=== PATIENT | male | born 1955 | race Caucasian/White ===

== ENCOUNTER 2019-01-27 05:35 | Inpatient (IN) ==
--- NOTE | 2018-12-25 16:30 | PAT Medication Instructions ---
Medication Instructions Date of Service December 25, 2018 Take morning of surgery With a small sip of water, OTHERWISE NOTHING TO EAT OR DRINK AFTER MIDNIGHT: Insulin Dependent Diabetic Patients * Test your blood sugar the morning of surgery * If Blood Sugar is GREATER THAN 150, take HALF of your regular dose of: * If Blood Sugar is LESS THAN 150, DO NOT TAKE ANY: Other Notes If you have any questions please call us at [phone] or [phone] or [phone] or [phone]
--- NOTE | 2018-12-28 08:25 | PAT Medication Instructions ---
Medication Instructions Date of Service December 28, 2018 Home Medications B-complex with vitamin C [Super B Complex-Vitamin C] 1 tab PO QAM Shot For Lungs , Starts With "F" 1 dose UD albuterol sulfate 2 puff INHALATION Q4H PRN amiodarone 200 mg PO QAM apixaban [Eliquis] 5 mg PO BID aspirin [Aspir-81] 81 mg PO HS cetirizine 10 mg PO QAM coenzyme Q10 [CoQ-10] 200 mg PO QAM cyclobenzaprine 10 mg PO TID PRN diltiazem HCl [Cartia XT] 180 mg PO QAM fluticasone propion-salmeterol 1 puff INHALATION BID hydrochlorothiazide 25 mg PO QAM lisinopril 40 mg PO HS montelukast 10 mg PO HS [id number] [Multivitamin 50 Plus] 1 tab PO QAM omeprazole 40 mg PO DAILY oxycodone 10 mg PO Q6H PRN red yeast rice 600 mg PO BID triamcinolone acetonide [Nasacort] 1 spray INTRANASAL UD PRN ASK your prescriber and surgeon apixaban [Eliquis] 5 mg PO BID (in order for spinal anesthesia Eliquis/Apixaban needs to be stopped 72 hours/3 days before surgery. Please check if okay with doctor that prescribes this to you) Shot For Lungs , Starts With "F" 1 dose UD STOP taking 2 weeks before surgery (or as soon as possible if surgery is within 2 weeks) coenzyme Q10 [CoQ-10] 200 mg PO QAM red yeast rice 600 mg PO BID DO NOT take the morning of surgery B-complex with vitamin C [Super B Complex-Vitamin C] 1 tab PO QAM Shot For Lungs , Starts With "F" 1 dose UD cetirizine 10 mg PO QAM cyclobenzaprine 10 mg PO TID PRN hydrochlorothiazide 25 mg PO QAM [id number] [Multivitamin 50 Plus] 1 tab PO QAM Take morning of surgery With a small sip of water, OTHERWISE NOTHING TO EAT OR DRINK AFTER MIDNIGHT: albuterol sulfate 2 puff INHALATION Q4H PRN (use if needed; please bring with you to hospital day of surgery if possible) amiodarone 200 mg PO QAM diltiazem HCl [Cartia XT] 180 mg PO QAM fluticasone propion-salmeterol 1 puff INHALATION BID omeprazole 40 mg PO DAILY oxycodone 10 mg PO Q6H PRN (okay to take up to 4 hours prior to surgery if needed) triamcinolone acetonide [Nasacort] 1 spray INTRANASAL UD PRN Take evening before surgery albuterol sulfate 2 puff INHALATION Q4H PRN (if needed) aspirin [Aspir-81] 81 mg PO HS cyclobenzaprine 10 mg PO TID PRN (if needed) fluticasone propion-salmeterol 1 puff INHALATION BID lisinopril 40 mg PO HS montelukast 10 mg PO HS oxycodone 10 mg PO Q6H PRN (if needed) triamcinolone acetonide [Nasacort] 1 spray INTRANASAL UD PRN (if needed) Other Notes If you have any questions please call us at [phone] or [phone] or [phone] or [phone]
--- NOTE | 2018-12-28 15:26 | Anesthesiology Consultation ---
Date of Service December 28, 2018 Assessment & Plan (1) Encounter for pre-operative examination: - Awaiting review preop testing (labs, CXR). - Awaiting surgeon-ordered PCP preop evaluation "done already" per patient ([facility] Arellano). - Awaiting nuclear portion of stress test from [facility] (done 12/11/17)- subsequent cardiac cath done 12/23/17 (noting minimal CAD). - Cardiology: 12/21/18: Hx intentional weight loss (339# to 264#). "Acceptable risk to proceed with the above intended surgery." Advised to stop Eliquis 48 hours prior to surgery per cardiology office visit note 12/21/18-- patient was subsequently seen at PAT 12/28/18 and advised that in order for preferred SAB, Eliquis would need to be stopped 72 hours prior to surgery. Patient was advised to contact cardiology to see if this is okay from their perspective. He was advised that if not, GA would be the alternative anesthesia. Chart Review Chart Review: Patient seen in Pre Admission Testing Teaching & Discussion Pre-Anesthesia Teaching/Discussion Notes: Instructed NPO after midnight before surgery,except medications with 15 cc of water. Medication instructions provided according to the [facility] guidelines. History Surgery Operation Date: 01/27/19 11:40 Proposed Procedures p Left Total Knee Arthroplasty - Gigi Fuentes DO Height/Weight Height: 5 ft 9 in Weight: 122.2 kg Allergies Allergy/AdvReac Type Severity Reaction Status Date / Time ampicillin Allergy pruritus, Verified 12/28/18 16:29 rash tramadol Allergy SOB Verified 12/28/18 16:29 gabapentin AdvReac hallucinati Verified 12/28/18 16:29 ons Medications Home Medications Medication Instructions Recorded Confirmed Last Taken B-complex with vitamin C [Super B 1 tab PO QAM 12/22/18 12/22/18 Unknown Complex-Vitamin C] Shot For Lungs , Starts With "F" 1 dose UD 12/22/18 12/22/18 Unknown albuterol sulfate 2 puff INHALATION Q4H PRN 12/22/18 12/22/18 Unknown amiodarone 200 mg PO QAM 12/22/18 12/22/18 Unknown apixaban [Eliquis] 5 mg PO BID 12/22/18 12/22/18 Unknown aspirin [Aspir-81] 81 mg PO HS 12/22/18 12/22/18 Unknown cetirizine 10 mg PO QAM 12/22/18 12/22/18 Unknown coenzyme Q10 [CoQ-10] 200 mg PO QAM 12/22/18 12/22/18 Unknown cyclobenzaprine 10 mg PO TID PRN 12/22/18 12/22/18 Unknown diltiazem HCl [Cartia XT] 180 mg PO QAM 12/22/18 12/22/18 Unknown fluticasone propion-salmeterol 1 puff INHALATION BID 12/22/18 12/22/18 Unknown hydrochlorothiazide 25 mg PO QAM 12/22/18 12/22/18 Unknown lisinopril 40 mg PO HS 12/22/18 12/22/18 Unknown montelukast 10 mg PO HS 12/22/18 12/22/18 Unknown ptzcvkgckrvk-tnrgehmu-hogtbw 1 tab PO QAM 12/22/18 12/22/18 Unknown [Multivitamin 50 Plus] omeprazole 40 mg PO DAILY 12/22/18 12/22/18 Unknown oxycodone 10 mg PO Q6H PRN 12/22/18 12/22/18 Unknown red yeast rice 600 mg PO BID 12/22/18 12/22/18 Unknown triamcinolone acetonide [Nasacort] 1 spray INTRANASAL UD PRN 12/22/18 12/22/18 Unknown Past Medical History Medical History Acid reflux controlled Afib paroxysmal Back problem Balance problem related to back/knee problems CAD (coronary artery disease) minimal non-obstructive COPD (chronic obstructive pulmonary disease) + lung disease (patient unsure if COPD vs. asthma) History of hepatitis remote hx (does not remember what type) s/p dietary changes/states no medical therapy was indicated History of stroke right eye (ocular)- 1+ years ago/residual mild right sided peripheral vision deficit/"floaters" Numbness and tingling chronic (LUE/hand, right fingertips) Obesity Shoulder problem s/p right shoulder injection (11/2018) Sleep apnea CPAP Exercise / Class Metabolic Activity III < 4 Walking/Shop/Light housework (uses cane PRN) Past Family History Family History Other Family history of breast cancer in mother Family history of cancer Family history of diabetes mellitus Past Surgical History Surgical History History of back surgery History of cardiac cath 1 YR AGO, KITTANING= NO STENTS History of colonoscopy History of elbow surgery LEFT History of eye surgery LASER RIGHT History of shoulder surgery LEFT History of tonsillectomy and adenoidectomy Hx of foot surgery LEFT Past Anesthesia History No Hx of Anesthesia Complications and No Family Hx of Anesthesia Complications History of PONV No Hx of PONV and No Hx of Motion Sickness Social History Smoking Status: Former smoker tobacco type: cigarettes Do You Dip or Chew Tobacco: Yes (4-5 CANS OVER A MONTH/ADVISED NPO) Smoking End Date: Quit 15+ years ago Hx Alcohol Use: Yes (HX HEAVY ALCOHOL USE IN PAST) Alcohol type: hard liquor alcohol intake frequency: a few times a week Hx Substance Use: No (HX OF - NONE CURRENT OTHER THAN PRESCRIPTION) Review of Systems Patient denies chest pain, shortness of breath, cough, wheezing, palpitations. Physical Exam Vital Signs VITALS BP 107/66 P 70 TEMP 98.3 SP02 94%RA RESP 16 PHYSICAL Full neck and c-spine range of motion. Full TMJ range of motion. TMD 3.5 finger breaths Mallampati Score 1 Dentition: chipped side tooth, missing molar Lungs: clear throughout to auscultation Cardiac: regular rate and rhythm, no murmurs noted Spine: normal Carotid arteries: negative bruit Extremities: no edema Trimmed evans Testing Electrocardiogram Date: 12/21/18 NSR at 71bpm. LAD. Inferior infarct, age undetermined (done at cardiology preop evaluation appointment). Echocardiogram Date: 10/13/17 EF 55%. Technically difficult study due to body habitus. Stress Test Date: 12/11/17 Type: exercise Lexiscan stress test negative for ischemia. Baseline EKG with a. fib with controlled ventricular response. Cardiac Catheterization Date: 12/23/17 Minimal CAD. EF 60%. Normal wall motion.
--- NOTE | 2018-12-28 16:10 | XRay Report ---
XR chest Pre-admission PA/Lat CLINICAL HISTORY: pat preoperative evaluation COMPARISON STUDY: No previous studies for comparison. FINDINGS: The bones soft tissues and hemidiaphragms are normal. The cardiomediastinal silhouette is n ormal. The lungs are clear. The pulmonary vasculature is normal. IMPRESSION: Negative chest. The above report was generated using voice recognition software. It may contain grammatical, syntax or spelling errors. Electronically signed by: Alex Lozada M.D. 12/28/2018 4:09 PM
[2018-12-28 16:11] LABS: Basophils # (auto) 0.01 K/uL (0-0.2); Basophils % (auto) 0.1 %; Hematocrit (blood only) 43.1 % (42-52); Hemoglobin 14.3 g/dL (14.0-18.0); Immature Granulocytes # (auto) 0.04 K/uL (0.00-0.02); Immature Granulocytes % (auto) 0.4 %; Lymphocytes # (auto) 1.58 K/uL (1.2-3.4); Lymphocytes % (auto) 15.9 %; Mean Corpuscular Hemoglobin 28.1 pg (25-34); Mean Corpuscular Hgb Conc 33.2 g/dL (32-36); Mean Corpuscular Volume 84.8 fL (80-100); Mean Platelet Volume 9.6 fL (7.4-10.4); Monocytes # (auto) 0.76 K/uL (0.11-0.59); Monocytes % (auto) 7.6 %; Neutrophils # (auto) 7.55 K/uL (1.4-6.5); Platelet Count 320 K/uL (130-400); RDW Coefficient of Variation 15.2 % (11.5-14.5); RDW Standard Deviation 47.3 fL (36.4-46.3); Red Blood Count 5.08 M/uL (4.7-6.1); White Blood Count 9.94 K/uL (4.8-10.8)
[2018-12-28 16:13] LABS: Appearance Urine Clear (Clear); Bacteria Urine Automated Negative (Negative); Bilirubin Urine Negative (Negative); Blood Urine Negative (Negative); Color Urine Dark Yellow; Epithelial Cell Urine Auto >30 /lpf (0-5); Glucose Urine UA Negative (Negative); Ketones Urine Trace (Negative); Leukocyte Esterase Urine Negative (Negative); Nitrite Urine Negative (Negative); Protein Urine 1+ (Negative); RBC Urine Automated 0-4 /hpf (0-4); Specific Gravity Urine 1.025 (1.000-1.030); Urobilinogen Urine Negative (Negative)
[2018-12-28 16:20] LABS: Albumin Level 3.6 gm/dl (3.4-5.0); BUN Creatinine Ratio 11.6 (10-20); Creatinine Clr Calc Pharmacy 64.2 ml/min; Est GFR (African American) 54.8; Est GFR (Non-African American) 47.2; Potassium 3.8 mmol/L (3.5-5.1)
[2018-12-28 16:21] LABS: Partial Thromboplastin Ratio 0.9; Partial Thromboplastin Time 25.7 Seconds (21.0-31.0); Prothrombin Time 10.3 Seconds (9.0-12.0)
[2018-12-29 05:32] LABS: Estimated Average Glucose 111 mg/dl; Hemoglobin A1C 5.5 % (4.5-5.6)
--- NOTE | 2018-12-29 08:15 | History & Physical Report ---
Date of Service December 29, 2018 date of surgery: 01/27/19 Assessment & Plan (1) Primary osteoarthritis of left knee: Risks and benefits of procedure discussed in detail today, patient would like to proceed with a Left total knee replacement at [facility] as scheduled. will obtain medical clearance prior to surgery as well as obtain PATs at [facility]. Will place on ASA 81mg po bid x 1 month post op, f/u 2 weeks post op for routine post-operative care and x-ray, sooner if having any problems. will make arrangements for HHPT at the time of discharge. At this point in time, has failed conservative measures and would like to proceed with surgical intervention. History of Present Illness Chief Complaint: left knee pain Primary Care Provider: NO PCP Mr Lynch is a 63 year old male who is here for a follow up of left knee pain, presents for pre-op evaluation prior to a left total knee replacement at [facility]. He presents with pain and stiffness on the left side. He states that the symptoms have been chronic non-traumatic and his pain occurs constantly with intermittent worsening. Currently the patient states that the symptoms are moderate-severe and is described as aching, sharp, shooting and throbbing. The symptoms occur continuously. Patient ambulates daily with cane. He rates his current pain as 10/10. The symptoms are aggravated by ascending stairs, daily activities, descending stairs, first steps while awake, kneeling, movement, repetitive activities, sleeping in any position, squatting, standing, walking and weight bearing. In addition to left knee pain the patient is also experiencing decreased mobility, difficulty bending, difficulty going to sleep, instability, joint pain, limping, nighttime awakening, pain, stiffness, tenderness and weakness. Prior NSAIDs include Ibuprofen and Aleve. Prior pain medications include oxycodone. He has been treated with a corticosteroid injection on the left side. Allergies Allergy/AdvReac Type Severity Reaction Status Date / Time ampicillin Allergy pruritus, Verified 12/28/18 16:29 rash tramadol Allergy SOB Verified 12/28/18 16:29 gabapentin AdvReac hallucinati Verified 12/28/18 16:29 ons Home Medications Home Medications Medication Instructions Recorded Confirmed Type B-complex with vitamin C [Super B 1 tab PO QAM 12/22/18 12/22/18 History Complex-Vitamin C] Shot For Lungs , Starts With "F" 1 dose UD 12/22/18 12/22/18 History albuterol sulfate 2 puff INHALATION Q4H PRN 12/22/18 12/22/18 History amiodarone 200 mg PO QAM 12/22/18 12/22/18 History apixaban [Eliquis] 5 mg PO BID 12/22/18 12/22/18 History aspirin [Aspir-81] 81 mg PO HS 12/22/18 12/22/18 History cetirizine 10 mg PO QAM 12/22/18 12/22/18 History coenzyme Q10 [CoQ-10] 200 mg PO QAM 12/22/18 12/22/18 History cyclobenzaprine 10 mg PO TID PRN 12/22/18 12/22/18 History diltiazem HCl [Cartia XT] 180 mg PO QAM 12/22/18 12/22/18 History fluticasone propion-salmeterol 1 puff INHALATION BID 12/22/18 12/22/18 History hydrochlorothiazide 25 mg PO QAM 12/22/18 12/22/18 History lisinopril 40 mg PO HS 12/22/18 12/22/18 History montelukast 10 mg PO HS 12/22/18 12/22/18 History bhospxiooewg-vwferpzt-dflieo 1 tab PO QAM 12/22/18 12/22/18 History [Multivitamin 50 Plus] omeprazole 40 mg PO DAILY 12/22/18 12/22/18 History oxycodone 10 mg PO Q6H PRN 12/22/18 12/22/18 History red yeast rice 600 mg PO BID 12/22/18 12/22/18 History triamcinolone acetonide [Nasacort] 1 spray INTRANASAL UD PRN 12/22/18 12/22/18 History Past Med/Surg History Medical History Acid reflux controlled Afib paroxysmal Back problem Balance problem related to back/knee problems CAD (coronary artery disease) minimal non-obstructive COPD (chronic obstructive pulmonary disease) + lung disease (patient unsure if COPD vs. asthma) History of hepatitis remote hx (does not remember what type) s/p dietary changes/states no medical therapy was indicated History of stroke right eye (ocular)- 1+ years ago/residual mild right sided peripheral vision deficit/"floaters" Numbness and tingling chronic (LUE/hand, right fingertips) Obesity Shoulder problem s/p right shoulder injection (11/2018) Sleep apnea CPAP Surgical History History of back surgery History of cardiac cath 1 YR AGO, KITTANING= NO STENTS History of colonoscopy History of elbow surgery LEFT History of eye surgery LASER RIGHT History of shoulder surgery LEFT History of tonsillectomy and adenoidectomy Hx of foot surgery LEFT Family History Other Family history of breast cancer in mother Family history of cancer Family history of diabetes mellitus Social History Preferred Language: Estonian Communication Ability: Effective Personal Banking Representative Required: No Beliefs That Will Affect Care: None Current Living Situation: Alone Other Information That Helps Us Care for You: Yes (LOSES BALANCE DUE TO BACK AND KNEE ISSUES) Feels Safe at Home: Yes Smoking Status: Former smoker Tobacco Type: cigarettes ; Do You Dip or Chew Tobacco: Yes (4-5 CANS OVER A MONTH/ADVISED NPO) ; Smoking End Date: Quit 15+ years ago ; Tobacco Cessation Education Requested by Patient: No Hx Alcohol Use: Yes (HX HEAVY ALCOHOL USE IN PAST) Alcohol type: hard liquor Hx Substance Use: No (HX OF - NONE CURRENT OTHER THAN PRESCRIPTION) Review of Systems Review of Systems: All systems reviewed & are unremarkable except as noted in HPI & below Constitutional: no fever, no chills and no sweats Respiratory: no cough and no dyspnea Cardiovascular: no chest pain, no dyspnea and no orthopnea Gastrointestinal: no abdominal pain, no nausea and no vomiting Musculoskeletal: as per Subjective / HPI Physical Exam Physical Exam: Ht: 5ft 9in Wt: 122kg BP: 132/68 Pulse: 82 Constitutional: WD/WN, vitals as above no acute distress Respiratory: normal respiratory effort, lungs clear to auscultation no respiratory distress, no labored breathing and does not use accessory muscles Cardiovascular: RRR, no murmur, no edema Gastrointestinal (Abdomen): normal bowel sounds, soft, nontender, no hepatosplenomegaly Musculoskeletal: Knee: + knee abnormal to inspection (Left knee: ), + effusion (+1 effusion), + surgical incision (well healed portals), + limited ROM of knee (ROM 0/3/110), + knee ROM with crepitation, + joint line tenderness (medial joint line) and + Lidia's sign positive; no deformity, no skin erythema, no ecchymosis, no valgus laxity, no varus laxity, anterior drawer test negative, Yanira's sign negative and pivot shift test negative Results & Data Laboratory Results Laboratory Results WBC 9.94 K/uL (4.8-10.8) 12/28/18 15:47 RBC 5.08 M/uL (4.7-6.1) 12/28/18 15:47 Hgb 14.3 g/dL (14.0-18.0) 12/28/18 15:47 Hct 43.1 % (42-52) 12/28/18 15:47 MCV 84.8 fL (80-100) 12/28/18 15:47 MCH 28.1 pg (25-34) 12/28/18 15:47 MCHC 33.2 g/dL (32-36) 12/28/18 15:47 RDW Std Deviation 47.3 fL (36.4-46.3) H 12/28/18 15:47 RDW Coeff of Niya 15.2 % (11.5-14.5) H 12/28/18 15:47 Plt Count 320 K/uL (130-400) 12/28/18 15:47 MPV 9.6 fL (7.4-10.4) 12/28/18 15:47 Immature Gran % (Auto) 0.4 % 12/28/18 15:47 Neut % (Auto) 76.0 % 12/28/18 15:47 Lymph % (Auto) 15.9 % 12/28/18 15:47 [place] % (Auto) 7.6 % 12/28/18 15:47 Eos % (Auto) 0.0 % 12/28/18 15:47 Baso % (Auto) 0.1 % 12/28/18 15:47 Immature Gran # (Auto) 0.04 K/uL (0.00-0.02) H 12/28/18 15:47 Neut # (Auto) 7.55 K/uL (1.4-6.5) H 12/28/18 15:47 Lymph # (Auto) 1.58 K/uL (1.2-3.4) 12/28/18 15:47 [place] # (Auto) 0.76 K/uL (0.11-0.59) H 12/28/18 15:47 Eos # (Auto) 0.00 K/uL (0-0.5) 12/28/18 15:47 Baso # (Auto) 0.01 K/uL (0-0.2) 12/28/18 15:47 PT 10.3 Seconds (9.0-12.0) 12/28/18 15:47 INR 1.0 (0.9-1.1) 12/28/18 15:47 APTT 25.7 Seconds (21.0-31.0) 12/28/18 15:47 PTT Ratio 0.9 12/28/18 15:47 Sodium 142 mmol/L (136-145) 12/28/18 15:47 Potassium 3.8 mmol/L (3.5-5.1) 12/28/18 15:47 Chloride 107 mmol/L (98-107) 12/28/18 15:47 Carbon Dioxide 29 mmol/L (21-32) 12/28/18 15:47 Anion Gap 6.0 (3-11) 12/28/18 15:47 BUN 18 mg/dl (7-18) 12/28/18 15:47 Creatinine 1.56 mg/dl (0.6-1.4) H 12/28/18 15:47 Est Cr Clr Drug Dosing 64.2 ml/min 12/28/18 15:47 Est GFR ( Amer) 54.8 12/28/18 15:47 Est GFR (Non-Af Amer) 47.2 12/28/18 15:47 BUN/Creatinine Ratio 11.6 (10-20) 12/28/18 15:47 Glucose 106 mg/dl (70-99) H 12/28/18 15:47 Estimat Average Glucose 111 mg/dl 12/28/18 15:47 Hemoglobin A1c 5.5 % (4.5-5.6) 12/28/18 15:47 Calcium 9.0 mg/dl (8.5-10.1) 12/28/18 15:47 Albumin 3.6 gm/dl (3.4-5.0) 12/28/18 15:47 Urine Color Dark Yellow 12/28/18 Unknown Urine Appearance Clear (Clear) 12/28/18 Unknown Urine pH 5.0 (4.5-7.5) 12/28/18 Unknown Ur Specific [place] 1.025 (1.000-1.030) 12/28/18 Unknown Urine Protein 1+ (Negative) H 12/28/18 Unknown Urine Glucose (UA) Negative (Negative) 12/28/18 Unknown Urine Ketones Trace (Negative) H 12/28/18 Unknown Urine Blood Negative (Negative) 12/28/18 Unknown Urine Nitrite Negative (Negative) 12/28/18 Unknown Urine Bilirubin Negative (Negative) 12/28/18 Unknown Urine Urobilinogen Negative (Negative) 12/28/18 Unknown Ur Leukocyte Esterase Negative (Negative) 12/28/18 Unknown Urine WBC (Auto) 1-5 /hpf (0-5) 12/28/18 Unknown Urine RBC (Auto) 0-4 /hpf (0-4) 12/28/18 Unknown U Hyaline Cast (Auto) 1-5 /lpf (0-5) 12/28/18 Unknown U Epithel Cells (Auto) >30 /lpf (0-5) H 12/28/18 Unknown Urine Bacteria (Auto) Negative (Negative) 12/28/18 Unknown Urine Yeast Not Reportable 12/28/18 Unknown Blood Type O Positive 12/28/18 15:47 Antibody Screen NEGATIVE 12/28/18 15:47 Diagnostic Findings Left Knee X-ray from 06/23/18 showing advanced degenerative changes to the left knee, greatest medial compartments and patellofemoral joint, showing joint space narrowing, osteophyte formation and subchondral sclerosis. no acute bony pathology noted.
[2019-01-27] MEDS ORDERED: METOCLOPRAMIDE HCL 10 MG TABLET PO SCH (06:00)
[2019-01-27] MEDS ORDERED: LR 500ML BOLUS, THEN 15ML/HR IV SCH (06:00)
[2019-01-27] MEDS ORDERED: TRANEXAMIC ACID 1,000 MG **IV Pre-op IV SCH (06:00)
[2019-01-27] MEDS ORDERED: ACETAMINOPHEN 500 MG TAB PO SCH (06:00)
[2019-01-27] MEDS ORDERED: CEFAZOLIN 3000MG 72.5 ML IV SCH (06:00)
[2019-01-27] MEDS ORDERED: GABAPENTIN 600 MG DOSE PO SCH (06:00)
[2019-01-27] MEDS ORDERED: dexAMETHasone 4 MG TAB PO SCH (06:00)
[2019-01-27] MEDS ORDERED: FAMOTIDINE 20 MG TAB PO SCH (06:00)
[2019-01-27] MEDS ORDERED: CeleBREX 200 MG CAP PO SCH (06:00)
[2019-01-27] MEDS ORDERED: TRANEXAMIC ACID 1,000 MG **IV Intra-op IV SCH (06:30)
[2019-01-27] MEDS ORDERED: EPINEPHrine INJ 1 MG/ML AMP ONE (06:31)
[2019-01-27] MEDS ORDERED: BUPIVACAINE 0.5 % 5 MG/1 ML PF 10ML VIAL ONE (06:31)
[2019-01-27] MEDS ORDERED: ROPIVACAINE 0.5% 5 MG/ML 30 ML VIAL ONE (06:31)
[2019-01-27] MEDS ORDERED: PROPOFOL IV EMULSION 10 MG/ML 20 ML VIAL IV ONE ×2 (06:54→09:05)
[2019-01-27] MEDS ORDERED: LIDOCAINE HCL 2% 2 ML VIAL/AMP(20MG/ML) INFIL ONE (06:54)
[2019-01-27] MEDS ORDERED: ONDANSETRON INJ 2 MG/ML 2 ML VIAL ONE (06:54)
[2019-01-27] MEDS ORDERED: MIDAZOLAM HCL 1 MG/ML 2ML VIAL ONE (06:54)
[2019-01-27] MEDS ORDERED: fentaNYL citrate 100 MCG/2 ML VIAL ONE (06:55)
--- NOTE | 2019-01-27 07:06 | History & Physical Bridge Note ---
Date of Service January 27, 2019 History & Physical Bridge Note I have examined the patient, reviewed the History & Physical and in the interval since the performance of the History & Physical I have noted the following changes of clinical significance: no changes noted
[2019-01-27] MEDS ORDERED: BACITRACIN INJ 50,000 UNIT VIAL ONE (07:37)
[2019-01-27] MEDS ORDERED: LABETALOL HCL IV 5 MG/ML 20ML IV PRN (07:42)
[2019-01-27] MEDS ORDERED: MEPERIDINE HCL 25 MG/ML CARP IV PRN (07:42)
[2019-01-27] MEDS ORDERED: ATROPINE SULFATE 0.1 MG/ML 10ML SYR IV PRN (07:42)
[2019-01-27] MEDS ORDERED: PHENYLEPHRINE 100MCG/ML 5ML SYR IV PRN (07:42)
[2019-01-27] MEDS ORDERED: ePHEDrine sulfate 50 MG/ML AMP IV PRN (07:42)
[2019-01-27] MEDS ORDERED: fentaNYL citrate 100 MCG/2 ML VIAL IV PRN (07:42)
[2019-01-27] MEDS ORDERED: ONDANSETRON INJ 2 MG/ML 2 ML VIAL IV PRN ×2 (07:42→11:56)
[2019-01-27] MEDS ORDERED: ROPIVACAINE 0.5% HCL/PF 150 MG, BUPIVACAINE 0.5% MPF 30 ML, EPINEPHrine 30MG/30ML (OR U... INFIL SCH (09:00)
--- NOTE | 2019-01-27 09:41 | Operative Report ---
Post Operative Report Pre & Post Diagnosis Operation Date: 01/27/19 08:20 Pre-Op Diagnosis: Unilateral Primary Osteoarthritis, Left Knee Post-Op Diagnosis: Unilateral Primary Osteoarthritis, Left Knee I identified the patient and participated in the time-out.: Yes Procedure Operation Date: 01/27/19 08:20 Actual Procedures p Left Total Knee Arthroplasty(Left) utilized [facility] [facility] patient matched total knee arthroplasty size 7 femur 6 tibia 10 polyethylene 32 oval patella- Gigi Fuentes DO Surgeon Gigi Fuentes DO [employer] OSMEL Roberts Estimated Blood Loss 5 Findings Consistent with Post-Op Diagnosis Patient presents with severe end-stage tricompartmental degenerative joint disease left knee is been unresponsive conservative management the above intraoperative findings are noted subchondral cystic changes marginal osteophytes bone to bone eburnated bone varus alignment moderate to large effusion with severe ligamentous laxity Specimens Bone and cartilage Drains Medium Hemovac Complications none Disposition Accompanied Patient To Recovery: No Disposition: Recovery Room Indications Patient is a 63-year-old white male being seen by request of ongoing pain to the left knee nonresponsive conservative management above intraoperative findings no time surgery patient failed times its injections Visco supplementation corticost eroid injections relative rest activity modification bracing and physical therapy patient presents the above intraoperative findings were noted. Description of Procedure After proper identification of the patientAfter proper prepping and draping of the left lower extremity anterior midline incision was made over the region of the extensor extensor mechanism after meticulous hemostasis was obtained and maintained in subcutaneous tissues a medial parapatellar incision was made The patella was subluxed lateralward the medial lateral gutter were cleaned from any hypertrophic synovitis and scar tissue of the distal femoral block was placed and the distal femoral osteotomy cut was made subsequently the chamfers anterior and posterior osteotomy cuts were made utilizing the 4-in-1 block the tibia was subsequently subluxed anteriorward medial and ateral meniscal remnants were excised in their entirety remnants of the anterior and posterior cruciate ligaments were excised in their entirety excellent exposure of the proximal tibia was obtained the tibial osteotomy guide was placed on the proximal tibial osteotomy cut was made once again the knee was irrigated with copious amounts of sterile saline solution the patella was subsequently everted lateralward thickened scar tissue around the patella was removed the patella was subse quently cut utilizing a freehand technique and was drilled prepared for final preparation and placement of patella socially flexion-extension gaps were checked and the equal and symmetric trials were placed to the appropriate femoral and tibial trials with poly-spacer being placed for equal flexion and extension gaps and full range of motion including extension to 0 and flexion to 140 the trial components after having been taken to recovery range of motion was subsequently removed meticulous hemostasis was obtained and maintained subsequently a knee block injection of joint cocktail including ropivacaine 0.5% 150 mg. Bupivacaine 0.5% epinephrine 1-200,030 mL's toradol 30 mg dexamethasone 4 mg ketamine 10 mg clonidine 100 micrograms normal saline solution 30 mg was infiltrated into the soft tissues of the posterior knee medial lateral gutters and periosteal synovium special attention was paid to protect neurovascular structures at all times subsequently trial components having been removed the knee was irrigated with sterile saline solution. debris was removed the proximal tibia was subsequently prepared and was made ready for the placement of the tibial component tibial component was also cemented and tamped into position the femoral component was subsequently placed and cemented in the position the patellar component was subsequently cemented in position because hemostasis once again obtained and maintained wound having been thoroughly irrigated with debridement and debridement lavage was performed as well as a medial parapatellar incision closed with #1 Vicryl in interrupted fashion subcutaneous was closed with #2 Vicryl skin was closed with skin clips. PA-C was necessary for prepping and drapping as well as wound closure of deep fascia Sub cutaneous tissue and skin and was necessary for the case. A sterile compressive dressing was placed patient was taken to recovery in stable condition of report dictated by Alfredo I attest to the content of the Intraoperative Record and any orders documented therein. Any exceptions are noted below. I attest to the content of the Intraoperative Record and any orders documented therein. Any exceptions are noted below.
--- NOTE | 2019-01-27 11:05 | XRay Report ---
LEFT KNEE 2 VIEWS History: Left total knee arthroplasty. Degenerative arthritis. Postop. FINDINGS: The patient is status post a left total knee arthroplasty. The hardware is intact. No fract ure or dislocation. Surgical drains are in place. IMPRESSION: Left total knee arthroplasty. No evidence for hardware complication. Electronically signed by: Car Snowden M.D. 01/27/2019 11:03 AM
--- NOTE | 2019-01-27 11:29 | Anesthesiology Progress Note ---
Date of Service January 27, 2019 Anesthesia Post Procedure Vital Signs Vital Signs: Temp Pulse Pulse Resp BP BP Pulse Ox 01/27/19 11:25 36.4 C L 57 L 12 105/73 96 01/27/19 11:15 59 L 14 127/62 97 01/27/19 11:05 51 L 12 126/62 98 01/27/19 10:55 59 L 21 133/62 96 01/27/19 10:45 59 L 16 131/61 96 01/27/19 10:35 57 L 12 128/58 L 95 01/27/19 10:25 36.3 C L 65 13 117/49 L 95 01/27/19 06:27 36.7 C 58 L 20 170/79 H 95 Pain Intensity Bilateral Back: Pain Intensity: 1 Transfer of Care Handoff Completed per policy Notes Mental Status: alert / awake / arousable Patient Amnestic to Procedure: Yes Nausea / Vomiting: adequately controlled Pain: adequately controlled Airway Patency, RR, SpO2: stable & adequate BP & HR: stable & adequate Hydration State: stable & adequate Neuraxial Anesthesia: was administered and sensory block is resolving Anesthetic Complications: no major complications apparent and Pt Satisfied with anesthetic care
[2019-01-27] MEDS ORDERED: METOCLOPRAMIDE HCL INJ 5 MG/ML 2 ML VIAL IV PRN (11:56)
[2019-01-27] MEDS ORDERED: MAGNESIUM HYDROXIDE SUSP 30 ML UDC PO PRN (11:56)
[2019-01-27] MEDS ORDERED: bisacodyL 10 MG SUPP PR PRN (11:56)
[2019-01-27] MEDS ORDERED: TRIAMCINOLONE ACET NASAL SPRAY 10.8ML BTL NAE PRN (11:56)
[2019-01-27] MEDS ORDERED: SODIUM CHLORIDE 0.9% 1000ML 1,000 ML IV SCH (11:56)
[2019-01-27] MEDS ORDERED: ALBUTEROL HFA 8 GM INHALER INH PRN (11:56)
[2019-01-27] MEDS ORDERED: NALOXONE HCL 0.4 MG/1 ML VIAL/CARP IV PRN (11:56)
[2019-01-27] MEDS: ACETAMINOPHEN 500 MG TAB PO SCH ×3 (13:37→21:20)
[2019-01-27] MEDS: OXYCODONE HCL IR 5 MG TAB (IMMEDIATE RELEASE) PO PRN ×3 (15:57→23:49)
[2019-01-27] MEDS: CLINDAMYCIN 600 MG in DEXTROSE 5% 50 ML IV SCH ×2 (15:58→23:44)
[2019-01-27] MEDS: DOCUSATE SODIUM 100 MG CAP PO SCH (20:00)
[2019-01-27] MEDS: ASPIRIN 81 MG ECTAB PO SCH (20:00)
[2019-01-27] MEDS: MONTELUKAST SODIUM 10 MG TABLET PO SCH (20:00)
[2019-01-27] MEDS: SENNA 8.6 MG TAB PO SCH (20:00)
[2019-01-27] MEDS ORDERED: FLUTICASONE PROPION SALMETEROL INH SCH (21:00)
[2019-01-28] MEDS: OXYCODONE HCL IR 5 MG TAB (IMMEDIATE RELEASE) PO PRN ×5 (05:18→23:45)
[2019-01-28] MEDS: ACETAMINOPHEN 500 MG TAB PO SCH ×3 (05:52→21:18)
[2019-01-28 06:13] LABS: Hematocrit (blood only) 36.4 % (42-52); Mean Corpuscular Hemoglobin 28.3 pg (25-34); Mean Corpuscular Volume 85.8 fL (80-100); Mean Platelet Volume 9.4 fL (7.4-10.4); Platelet Count 308 K/uL (130-400); RDW Coefficient of Variation 15.2 % (11.5-14.5); RDW Standard Deviation 47.8 fL (36.4-46.3); Red Blood Count 4.24 M/uL (4.7-6.1)
--- NOTE | 2019-01-28 06:42 | Orthopedic Progress Note ---
Date of Service January 28, 2019 Assessment & Plan (1) History of total left knee replacement: POD #1 s/p Left TKA pt/ot dvt proph with LEWIS/SCD/resume Adriana today plan for d/c home with OPPT, he will be staying with his sister in [place] during his recovery Subjective POD #1 s/p Left TKA Review of Systems Constitutional: no fever, no chills and no sweats Respiratory: no cough and no dyspnea Cardiovascular: no chest pain and no dyspnea Gastrointestinal: no abdominal pain, no nausea and no vomiting Physical Exam Physical Exam: Vital Signs Temp 37.1 C 01/28/19 03:00 Pulse 57 L 01/28/19 03:00 Resp 16 01/28/19 03:00 BP 126/68 01/28/19 03:00 Pulse Ox 98 01/28/19 03:00 Intake & Output 01/27/19 01/28/19 01/28/19 18:59 06:59 18:59 Intake Total 2296.5 / 4810.5 2514 / 4810.5 Output Total 440 / 1290 850 / 1290 Balance 1856.5 / 3520.5 1664 / 3520.5 Weight 127 kg Intake: IV 946.5 / 2000.5 1054 / 2000.5 Ancef 3000MG 7 2.5 ml @ 130 mls/ 72.5 / 72.5 hr IV PREOP SC H Rx#:[id number] Cleocin 600 mg In D5w 50 ml @ 54 / 108 54 / 108 100 mls/hr IV Q8H MANNY Rx#: [id number] Lr 1,000 ml @ 15 mls/hr IV . 600 / 600 Q24H MANNY Rx#:[id number] Nss 1000ML 1,0 00 ml @ 100 mls/ 1000 / 1000 hr IV .Q10H SC H Rx#:[id number] Cyklokapron 1, 000 mg In Sodium 220 / 220 Chloride 100 m l @ 660 mls/hr IV 0630 MANNY Rx#:[id number] IV Perioperative 800 / 800 Oral 550 / 2010 1460 / 2010 Output: Urine 350 / 600 250 / 600 Estimated Blood Loss 10 / 10 Drain Output 80 / 680 600 / 680 Left Knee 80 / 680 600 / 680 Constitutional: WD/WN, vitals as above no acute distress Musculoskeletal: Left Leg: NVDI, calf SNT, negative joby sign. DP palpable, able to wiggle toes/ankle movement without difficulty. dressing clean dry and intact. Results & Data Vital Signs (Past 12 Hours) Vital Signs Temp Pulse Resp BP Pulse Ox 01/28/19 03:00 37.1 C 57 L 16 126/68 98 01/27/19 23:07 36.9 C 59 L 16 128/64 96 01/27/19 19:42 36.9 C 62 18 151/70 H 96 Laboratory Results Laboratory Results WBC 20.30 K/uL (4.8-10.8) H 01/28/19 06:01 RBC 4.24 M/uL (4.7-6.1) L 01/28/19 06:01 Hgb 12.0 g/dL (14.0-18.0) L 01/28/19 06:01 Hct 36.4 % (42-52) L 01/28/19 06:01 MCV 85.8 fL (80-100) 01/28/19 06:01 MCH 28.3 pg (25-34) 01/28/19 06:01 MCHC 33.0 g/dL (32-36) 01/28/19 06:01 RDW Std Deviation 47.8 fL (36.4-46.3) H 01/28/19 06:01 RDW Coeff of Niya 15.2 % (11.5-14.5) H 01/28/19 06:01 Plt Count 308 K/uL (130-400) 01/28/19 06:01 MPV 9.4 fL (7.4-10.4) 01/28/19 06:01 Immature Gran % (Auto) 0.4 % 12/28/18 15:47 Neut % (Auto) 76.0 % 12/28/18 15:47 Lymph % (Auto) 15.9 % 12/28/18 15:47 [place] % (Auto) 7.6 % 12/28/18 15:47 Eos % (Auto) 0.0 % 12/28/18 15:47 Baso % (Auto) 0.1 % 12/28/18 15:47 Immature Gran # (Auto) 0.04 K/uL (0.00-0.02) H 12/28/18 15:47 Neut # (Auto) 7.55 K/uL (1.4-6.5) H 12/28/18 15:47 Lymph # (Auto) 1.58 K/uL (1.2-3.4) 12/28/18 15:47 [place] # (Auto) 0.76 K/uL (0.11-0.59) H 12/28/18 15:47 Eos # (Auto) 0.00 K/uL (0-0.5) 12/28/18 15:47 Baso # (Auto) 0.01 K/uL (0-0.2) 12/28/18 15:47 PT 10.3 Seconds (9.0-12.0) 12/28/18 15:47 INR 1.0 (0.9-1.1) 12/28/18 15:47 APTT 25.7 Seconds (21.0-31.0) 12/28/18 15:47 PTT Ratio 0.9 12/28/18 15:47 Sodium 137 mmol/L (136-145) 01/28/19 06:01 Potassium 3.9 mmol/L (3.5-5.1) 01/28/19 06:01 Chloride 105 mmol/L (98-107) 01/28/19 06:01 Carbon Dioxide 29 mmol/L (21-32) 01/28/19 06:01 Anion Gap 3.0 (3-11) 01/28/19 06:01 BUN 25 mg/dl (7-18) H 01/28/19 06:01 Creatinine 1.49 mg/dl (0.6-1.4) H 01/28/19 06:01 Est Cr Clr Drug Dosing 68.6 ml/min 01/28/19 06:01 Est GFR ( Amer) 57.9 01/28/19 06:01 Est GFR (Non-Af Amer) 49.9 01/28/19 06:01 BUN/Creatinine Ratio 16.6 (10-20) 01/28/19 06:01 Glucose 133 mg/dl (70-99) H 01/28/19 06:01 POC Glucose 89 (70-99) 01/27/19 06:27 Estimat Average Glucose 111 mg/dl 12/28/18 15:47 Hemoglobin A1c 5.5 % (4.5-5.6) 12/28/18 15:47 Calcium 8.5 mg/dl (8.5-10.1) 01/28/19 06:01 Albumin 3.6 gm/dl (3.4-5.0) 12/28/18 15:47 Urine Color Dark Yellow 12/28/18 Unknown Urine Appearance Clear (Clear) 12/28/18 Unknown Urine pH 5.0 (4.5-7.5) 12/28/18 Unknown Ur Specific [place] 1.025 (1.000-1.030) 12/28/18 Unknown Urine Protein 1+ (Negative) H 12/28/18 Unknown Urine Glucose (UA) Negative (Negative) 12/28/18 Unknown Urine Ketones Trace (Negative) H 12/28/18 Unknown Urine Blood Negative (Negative) 12/28/18 Unknown Urine Nitrite Negative (Negative) 12/28/18 Unknown Urine Bilirubin Negative (Negative) 12/28/18 Unknown Urine Urobilinogen Negative (Negative) 12/28/18 Unknown Ur Leukocyte Esterase Negative (Negative) 12/28/18 Unknown Urine WBC (Auto) 1-5 /hpf (0-5) 12/28/18 Unknown Urine RBC (Auto) 0-4 /hpf (0-4) 12/28/18 Unknown U Hyaline Cast (Auto) 1-5 /lpf (0-5) 12/28/18 Unknown U Epithel Cells (Auto) >30 /lpf (0-5) H 12/28/18 Unknown Urine Bacteria (Auto) Negative (Negative) 12/28/18 Unknown Urine Yeast Not Reportable 12/28/18 Unknown Blood Type O Positive 12/28/18 15:47 Antibody Screen NEGATIVE 12/28/18 15:47 Diagnostic Findings LEFT KNEE 2 VIEWS History: Left total knee arthroplasty. Degenerative arthritis. Postop. FINDINGS: The patient is status post a left total knee arthroplasty. The hardware is intact. No fracture or dislocation. Surgical drains are in place. IMPRESSION: Left total knee arthroplasty. No evidence for hardware complication.
[2019-01-28 06:44] LABS: BUN Creatinine Ratio 16.6 (10-20); Calcium 8.5 mg/dl (8.5-10.1); Creatinine Clr Calc Pharmacy 68.6 ml/min; Est GFR (African American) 57.9; Est GFR (Non-African American) 49.9; Potassium 3.9 mmol/L (3.5-5.1)
[2019-01-28] MEDS: AMIODARONE 200 MG TAB PO SCH (07:47)
[2019-01-28] MEDS: VITAMIN B COMPLEX TAB PO SCH (07:48)
[2019-01-28] MEDS: APIXABAN 5 MG TABLET PO SCH ×2 (07:48→20:29)
[2019-01-28] MEDS: CETIRIZINE HCL 10 MG TABLET PO SCH ×2 (07:48→07:49)
[2019-01-28] MEDS: DOCUSATE SODIUM 100 MG CAP PO SCH ×2 (07:48→20:29)
[2019-01-28] MEDS: dilTIAZem HCL 180 MG CAPCR PO SCH (07:48)
[2019-01-28] MEDS: MULTIVITAMIN TAB PO SCH (07:48)
[2019-01-28] MEDS: CYCLOBENZAPRINE HCL 10 MG TAB PO PRN (08:50)
[2019-01-28] MEDS: HYDROmorphone INJ 1 MG/ML SYRINGE IV PRN ×2 (10:53→18:36)
--- NOTE | 2019-01-28 14:42 | Anesthesiology Progress Note ---
Date of Service January 28, 2019 Anesthesia Post Procedure Vital Signs Vital Signs: Temp Pulse Resp BP Pulse Ox 01/28/19 08:04 37.0 C 52 L 16 143/75 H 96 01/28/19 03:00 37.1 C 57 L 16 126/68 98 01/27/19 23:07 36.9 C 59 L 16 128/64 96 01/27/19 19:42 36.9 C 62 18 151/70 H 96 01/27/19 15:54 36.6 C 55 L 18 144/80 H 96 Pain Intensity Bilateral Back: Pain Intensity: 4 Notes Mental Status: alert / awake / arousable and participated in evaluation Patient Amnestic to Procedure: Yes Nausea / Vomiting: adequately controlled Pain: adequately controlled Airway Patency, RR, SpO2: stable & adequate BP & HR: stable & adequate Hydration State: stable & adequate Neuraxial Anesthesia: was administered and sensory block resolved Anesthetic Complications: no major complications apparent and Pt Satisfied with anesthetic care
[2019-01-28] MEDS: MONTELUKAST SODIUM 10 MG TABLET PO SCH (20:29)
[2019-01-28] MEDS: ASPIRIN 81 MG ECTAB PO SCH (20:29)
[2019-01-28] MEDS: SENNA 8.6 MG TAB PO SCH (20:29)
[2019-01-29] MEDS: OXYCODONE HCL IR 5 MG TAB (IMMEDIATE RELEASE) PO PRN ×3 (03:59→11:50)
[2019-01-29] MEDS: ACETAMINOPHEN 500 MG TAB PO SCH (05:15)
--- NOTE | 2019-01-29 07:19 | Orthopedic Progress Note ---
Date of Service January 29, 2019 Assessment & Plan (1) History of total left knee replacement: POD #2 s/p Left TKA pt/ot dvt proph with LEWIS/SCD/resume Eliquis plan for d/c home with OPPT, plan on d/c after PT today Subjective POD #2 s/p Left TKA Review of Systems Constitutional: no fever and no chills Cardiovascular: no chest pain and no dyspnea Physical Exam Physical Exam: Vital Signs Temp 37.0 C 01/28/19 23:00 Pulse 54 L 01/28/19 23:00 Resp 16 01/28/19 23:00 BP 113/58 L 01/28/19 23:00 Pulse Ox 95 01/28/19 23:00 Intake & Output 01/28/19 01/29/19 01/29/19 18:59 06:59 18:59 Intake Total 1200 / 1475 275 / 1475 Output Total 145 / 1045 900 / 1045 Balance 1055 / 430 -625 / 430 Intake: Oral 1200 / 1475 275 / 1475 Output: Urine 775 / 775 Drain Output 145 / 270 125 / 270 Left Knee 145 / 270 125 / 270 Constitutional: WD/WN, vitals as above no acute distress Musculoskeletal: left knee: NVDI, calf SNT, negative joby sign. DP palpable, able to wiggle toes/ankle movement without difficulty. Prineo dressing clean dry and intact. expected post-operative bruising noted. Results & Data Vital Signs (Past 12 Hours) Vital Signs Temp Pulse Resp BP Pulse Ox 01/28/19 23:00 37.0 C 54 L 16 113/58 L 95
[2019-01-29] MEDS: CYCLOBENZAPRINE HCL 10 MG TAB PO PRN (07:55)
[2019-01-29] MEDS: APIXABAN 5 MG TABLET PO SCH (07:55)
[2019-01-29] MEDS: VITAMIN B COMPLEX TAB PO SCH (07:56)
[2019-01-29] MEDS: DOCUSATE SODIUM 100 MG CAP PO SCH (07:56)
[2019-01-29] MEDS: MULTIVITAMIN TAB PO SCH (07:56)
[2019-01-29] MEDS: CETIRIZINE HCL 10 MG TABLET PO SCH (07:56)
[2019-01-29] MEDS: AMIODARONE 200 MG TAB PO SCH (07:56)
[2019-01-29] MEDS: dilTIAZem HCL 180 MG CAPCR PO SCH (07:56)
--- NOTE | 2019-01-29 08:41 | Discharge Summary ---
Date of Service date of discharge: January 29, 2019 date of Admission: 01/27/19 Admission HPI Per Admitting Provider Mr Lynch is a 63 year old male who is here for a follow up of left knee pain, presents for pre-op evaluation prior to a left total knee replacement at [facility]. He presents with pain and stiffness on the left side. He states that the symptoms have been chronic non-traumatic and his pain occurs constantly with intermittent worsening. Currently the patient states that the symptoms are moderate-severe and is described as aching, sharp, shooting and throbbing. The symptoms occur continuously. Patient ambulates daily with cane. He rates his current pain as 10/10. The symptoms are aggravated by ascending stairs, daily activities, descending stairs, first steps while awake, kneeling, movement, repetitive activities, sleeping in any position, squatting, standing, walking a nd weight bearing. In addition to left knee pain the patient is also experiencing decreased mobility, difficulty bending, difficulty going to sleep, instability, joint pain, limping, nighttime awakening, pain, stiffness, tenderness and weakness. Prior NSAIDs include Ibuprofen and Aleve. Prior pain medications include oxycodone. He has been treated with a corticosteroid injection on the left side. Principal Diagnosis left knee osteoarthritis Discharge Exam Vital Signs Temp 37.3 C 01/29/19 07:45 Pulse 68 01/29/19 07:45 Resp 16 01/29/19 07:45 BP 158/71 H 01/29/19 07:45 Pulse Ox 94 01/29/19 07:45 Intake & Output 01/28/19 01/29/19 01/29/19 18:59 06:59 18:59 Intake Total 1200 / 1475 275 / 1475 Output Total 145 / 1045 900 / 1045 Balance 1055 / 430 -625 / 430 Intake: Oral 1200 / 1475 275 / 1475 Output: Urine 775 / 775 Drain Output 145 / 270 125 / 270 Left Knee 145 / 270 125 / 270 Constitutional WD/WN, vitals as above no acute distress Musculoskeletal left knee: NVDI, calf SNT, negative joby sign. DP palpable, able to wiggle toes/ankle movement without difficulty. Prineo dressing clean dry and intact. expected post-operative bruising noted. Discharge Data Allergies Allergy/AdvReac Type Severity Reaction Status Date / Time ampicillin Allergy pruritus, Verified 01/27/19 06:14 rash tramadol Allergy SOB Verified 01/27/19 06:14 gabapentin AdvReac hallucinati Verified 01/27/19 06:14 ons Consultations 01/27/19 11:56 Consult Case Management - Discharge Planning Routine Procedures Performed Operation Date: 01/27/19 08:20 Actual Procedures p Left Total Knee Arthroplasty(Left) - Gigi Fuentes DO Ordered Studies 01/27/19 05:00 US - OR guided needle placemen Routine Hospital Course (1) History of total left knee replacement: POD #2 s/p Left TKA pt/ot dvt proph with LEWIS/SCD/resume Eliquis plan for d/c home with OPPT, plan on d/c after PT today Total Time Total Time Spent Total Time Spent (In Minutes): 20 Total Time Includes: Examination of the Patient, Discharge Planning and Medication Reconciliation Discharge Plan Discharge Items Patient Disposition: Home - Self-Care Reason For Visit: Unilateral Primary Osteoarthritis, Left Knee Discharge Diagnosis: left total knee replacement Condition on Discharge: Good Activity: Per Instructions section Lifting: Wait until after follow-up appointment Exercise/Sports: Wait until after follow-up appointment Weightbearing: Full weightbearing and Left weightbearing Non-emergency contact: Surgeon Call non-emergency contact if: your temperature is above 101, your wound has increased redness, your wound has increased drainage and your wound pain has increased Follow-up/Referrals: Valerie Isaacs DO [Primary Care Provider] - Diet: Regular Addtl Attending Provider Instructions: ACTIVITY RECOMMENDATIONS: SELF CARE INSTRUCTIONS AFTER TOTAL KNEE REPLACEMENT A. You may need to continue a physical therapy program after discharge from the hospital. There are several options available to you. Your doctor will assist you in selecting the best one for you. 1. An out-patient facility 2 to 3 times a week for therapy or home therapy. 2. Continue working on all exercises taught to you in the hospital. Your goals should be to increase bending of your knee to 90 degrees and beyond and to fully straighten your knee. B. You may progress at your own pace from walking with a walker or crutches to a cane; then to no assistive devices. C. Make walking a part of your daily routine. Be up as much as comfortable with rest periods throughout the day. Rest with leg elevation is very important. Use the ice wrap frequently for the first 3-4 weeks. D. There are no restrictions on activities. You may ride in a car, shop, participate in track liner operator and all social activities. E. Wear the long elastic stockings (LEWIS hose) 20 hours a day for 2 weeks after surgery. They can be removed several times a day for laundering and for a bath. F. You may shower, no tub baths until cleared by your doctor. SPECIAL CARE INSTRUCTIONS: VERY IMPORTANT TO READ AND REVIEW A. There are a few signs you need to watch for after you are home. Call [facility] [place] if you notice any of the followin. Increased severe knee pain. Some pain is expected especially when you exercise. 2. Increased swelling in your leg or knee; pain or swelling of the calf muscle in either lower leg. 3. Any fluid drainage from the incision. 4. Shortness of breath or chest pain. B. Please call [facility] [place] at if you have any concerns or questions about your operation or recovery. The doctor or his nurse will return your call promptly. C. You must take antibiotics before dental work, bladder, bowel or other surgery. Your doctor will provide you with a permanent care to carry describing this precaution. IMPORTANT: * REMEMBER TO TAKE ASPIRIN, 81 MG, TWICE DAILY FOR 4 WEEKS UNLESS OTHERWISE DIRECTED. THIS IS YOUR BLOOD THINNER. * HIGH RISK PATIENTS MAY BE PRESCRIBED A STRONGER BLOOD THINNER. THIS WILL BE PROVIDED AT DISCHARGE. * CALL IF INCREASED PAIN, REDNESS, DRAINAGE OR FEVER GREATER THAT 101. * WEAR LEWIS HOSE 20 HOURS PER DAY FOR 2 WEEKS. * DERMABOND Prineo- This is a mesh tape dressing that is covered with glue. It should remain in place until the incision is properly healed, usually 10-14 days. This dressing is designed to naturally slough off. You may trim the excess mesh tape as it peels off. Incision may be briefly wet in a shower. Dry immediately by blotting with a clean, dry towel. Do not bath or swim until instructed by your doctor. Do not scratch, rub, or pick at the dressing. Do not apply any topical ointments or lotions until dressing is completely removed and/or instructed by your doctor. There may be a small piece of suture material at one end of your incision. Do not pull or trim this. If it is bothersome or catching on clothing, you may c over it with a band-aid. IF INCISION IS LEAKING THROUGH DRESSING, CALL THE OFFICE . FOLLOW UP VISIT: If appointment is not already scheduled: Please call [facility] [place] to make a follow-up appointment for 2 weeks after your surgery at . Pending Studies at Discharge: No Stand-Alone Forms: My [facility] [employer], Smoking Cessation Medications and DC Order Prescriptions: New oxycodone 5 mg Tablet 5 - 10 mg PO Q6H PRN (Reason: pain) Qty: 60 RF: 0 docusate sodium 100 mg Capsule 100 mg PO BID 10 Days Qty: 20 RF: 0 clindamycin HCl 300 mg capsule 300 mg PO TID 7 Days Qty: 21 RF: 0 Continued cyclobenzaprine 10 mg Tablet 10 mg PO TID PRN (Reason: MUSCLE TIGHTNESS) RF: 0 cetirizine 10 mg Tablet 10 mg PO QAM RF: 0 diltiazem HCl [Cartia XT] 180 mg Capsule,Extended Release 24hr 180 mg PO QAM RF: 0 amiodarone 200 mg Tablet 200 mg PO QAM RF: 0 omeprazole 40 mg Capsule,Delayed Release(Dr/Ec) 40 mg PO DAILY RF: 0 aspirin [Aspir-81] 81 mg Tablet,Delayed Release (Dr/Ec) 81 mg PO HS RF: 0 triamcinolone acetonide [Nasacort] 55 mcg Aerosol,[place] 1 spray INTRANASAL UD PRN (Reason: SEASONAL ALLERGIES) RF: 0 montelukast 10 mg Tablet 10 mg PO HS RF: 0 hydrochlorothiazide 25 mg Tablet 25 mg PO QAM RF: 0 albuterol sulfate 90 mcg/actuation Hfa Aerosol Inhaler 2 puff INHALATION Q4H PRN (Reason: COPD) RF: 0 lisinopril 40 mg Tablet 40 mg PO HS RF: 0 oxycodone 10 mg Tablet 10 mg PO Q6H PRN (Reason: Pain) RF: 0 Eliquis 5 mg Tablet 5 mg PO BID RF: 0 fluticasone propion-salmeterol 232-14 mcg/actuation Aerosol Powdr Breath Activated 1 puff INHALATION BID RF: 0 B-complex with vitamin C [Super B Complex-Vitamin C] Tablet 1 tab PO QAM RF: 0 Multivitamin 50 Plus Tablet 1 tab PO QAM RF: 0 Shot For Lungs , Starts With "F" 1 dose UD RF: 0 Discontinued red yeast rice 600 mg Tablet 600 mg PO BID RF: 0 Discharge Orders: Discharge Order (Routine); Ordered 01/29/19 Ordered By: Alex Alcantara Admission Data Admit Date/Time: 01/27/19 10:39 Attending Provider: Gigi Fuentes Admit Provider: Gigi Fuentes Primary Care Provider: Valerie Isaacs
== END 2019-01-29 12:16 | disposition home or self-care (01) | DRG 470 ==
LOC: ASU 05:35 → 3E 10:39

== ENCOUNTER 2020-06-14 08:50 | Inpatient (IN) ==
--- NOTE | 2020-05-25 09:46 | Anesthesiology Consultation ---
Date of Service May 25, 2020 Assessment & Plan (1) Encounter for pre-operative examination: Chart Review Chart Review: Acceptable Risk for Surgery (pending preop Covid testing ) and Patient NOT seen in Pre Admission Testing Per nursing assessment 05/24/20, pt resides in [facility]. Wears mask, uses good hand hygiene and socially distances. Traveled only to [facility] for Covid vaccine. No known Covid positive contacts or Covid related symptoms. No known Covid infection in the past 90 days. Pt will be following up with surgeon's office re: preop Covid testing date and time= will await results. Patient seen by cardiology 05/18/2020 = patient seen for preop for right knee replacement. Per cardio [id number] cardiac cath showed 20% lesion in RCA, and 20% lesion in circumflexno intervention was required. EKG done in office at cardio appointment "sinus rhythm at 70. Left anterior hemiblock. Possible inferior scar. No change from previous per cardio. " He is optimized and stable for surgery." Because of skin reactionamiodarone was decreased. Follow-up 6 months. Left total knee replacement 01/27/2019 = done under MAC and SAB. SAB done at L3- 4 with 1 attempt. No anesthesia issues noted per anesthesia record. History Surgery Operation Date: 06/14/20 07:15 Proposed Procedures p Right Total Knee Arthroplasty - Gigi Fuentes DO Height/Weight Height: 5 ft 9 in Weight: 135.624 kg Allergies Allergy/AdvReac Type Severity Reaction Status Date / Time tramadol Allergy Severe SOB Verified 05/24/20 11:59 ampicillin Allergy Mild pruritus, Verified 05/24/20 11:59 rash gabapentin AdvReac Intermediate hallucinati Verified 05/24/20 11:59 ons Medications Home Medications Medication Instructions Recorded Confirmed Last Taken B-complex with vitamin C [Super B 1 tab PO QAM 12/22/18 05/24/20 01/20/19 Complex-Vitamin C] Eliquis 5 mg PO BID 12/22/18 05/24/20 01/20/19 Multivitamin 50 Plus 1 tab PO QAM 12/22/18 05/24/20 01/20/19 albuterol sulfate 2 puff INHALATION Q4H PRN 12/22/18 05/24/20 01/26/19 20:00 amiodarone 100 mg PO QAM 12/22/18 05/24/20 01/27/19 04:00 cetirizine 10 mg PO QAM 12/22/18 05/24/20 01/20/19 cyclobenzaprine 10 mg PO TID PRN 12/22/18 05/24/20 01/26/19 20:00 diltiazem HCl [Cartia XT] 180 mg PO QAM 12/22/18 05/24/20 01/27/19 04:00 fluticasone propion-salmeterol 1 puff INHALATION BID 12/22/18 05/24/20 01/26/19 20:00 hydrochlorothiazide 25 mg PO QAM 12/22/18 05/24/20 01/26/19 06:00 lisinopril 40 mg PO HS 12/22/18 05/24/20 01/26/19 20:00 montelukast 10 mg PO HS 12/22/18 05/24/20 01/26/19 20:00 omeprazole 40 mg PO HS 12/22/18 05/24/20 01/20/19 oxycodone 10 mg PO Q6H PRN 12/22/18 05/24/20 01/27/19 02:30 cholecalciferol (vitamin D3) 25 mcg PO BID 12/24/19 05/24/20 Unknown [Vitamin D3] coQ10 (ubiquinol) 200 mg PO QAM 12/24/19 05/24/20 Unknown magnesium 250 mg PO QAM 12/24/19 05/24/20 Unknown multivitamin with minerals 1 tab PO QAM 12/24/19 05/24/20 Unknown [Hair,Skin and Nails] red yeast rice 600 mg PO BID 12/24/19 05/24/20 Unknown aspirin [Aspir-81] 81 mg PO HS 05/24/20 05/24/20 Unknown benralizumab [Fasenra] See Rx Instructions .ROUTE .COMPLEX 05/25/20 05/25/20 Unknown Past Medical History Medical History (Updated 05/25/20 @ 10:09 by Kerri Mejia PA-C) Acid reflux Afib paroxysmal Asthma stable CAD (coronary artery disease) Non-obstructive per 2018 cath-F/U DR DILSHAD BOLIVAR COPD (chronic obstructive pulmonary disease) Enlarged prostate Hiatal hernia History of hepatitis remote hx (does not remember what type), no treatment indicated per patient 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 MEDIAL vision deficit/"floaters" Hyperlipidemia Hypertension Morbid obesity Numbness and tingling chronic (LUE/hand, right fingertips) Sleep apnea CPAP Past Family History Family History Other Family history of breast cancer in mother Family history of cancer No family history of adverse response to anesthesia Past Surgical History Surgical History History of back surgery lumbar cyst removal History of cardiac cath 2018- no stents-[facility] History of colonoscopy History of elbow surgery LEFT History of esophagogastroduodenoscopy (EGD) History of eye surgery LASER RIGHT History of shoulder surgery LEFT History of tonsillectomy and adenoidectomy History of total knee replacement Left TKA: 01/27/19: SAB x1 attempt at L3/L4 + PNB at [facility] Hx of foot surgery RIGHT Social History Smoking Status: Former smoker tobacco type: smokeless tobacco Do You Dip or Chew Tobacco: Yes (VERY LITTLE-) Smoking End Date: QUIT 25-30 YRS AGO Hx Alcohol Use: Yes Alcohol type: hard liquor alcohol intake frequency: a few times a month Hx Substance Use: No substance use type: does not use Testing Laboratory Results 05/24/20= WBC: 7.4 H/H: 13.9/42.5 PLATELETS: 324 SODIUM: 143 POTASSIUM: 4.3 CHLORIDE: 102 CO2: 34.0 BUN: 18 CREATININE: 1.4 GLUCOSE: 105 GFR: 55 HGB A1C: 5.5 PT: 14.1 PTT: 37.6 INR: 1.2 UA: Negative Electrocardiogram Date: 05/18/20 Sinus rhythm at 70 bpm. LAD, consider left anterior fascicular block. Consider RVH. Borderline prolonged QT interval Baseline wander in lead(s) II,aVF Chest X-Ray Date: 12/28/19 FINDINGS: Unchanged eventration of the right hemidiaphragm with medial right lung base opacities suggestive of a prominent epicardial fat pad. There is no pneumothorax, pleural effusion, airspace consolidation or overt pulmonary edema. The bones of the chest appear grossly intact. Degenerative changes of the shoulders and spine. IMPRESSION: No acute process. Echocardiogram Date: 10/13/17 EF 55%. Technically difficult study due to body habitus. Stress Test Date: 12/11/17 Type: exercise Lexiscan stress test negative for ischemia. Baseline EKG with a. fib with controlled ventricular response. Cardiac Catheterization Date: 12/23/17 Minimal CAD. EF 60%. Normal wall motion.
--- NOTE | 2020-06-09 08:17 | History & Physical Report ---
Date of Service June 09, 2020 date of surgery: 06/14/20 Procedure: Right Total Knee Arthroplasty Assessment & Plan (1) Arthritis of right knee: Risks and benefits of procedure discussed in detail today, patient would like to proceed with a Right total knee replacement at [facility] as scheduled. will obtain medical clearance prior to surgery as well as obtain PATs at [facility]. Will his Eliquis after his surgery, f/u 2 weeks post op for routine post-operative care and x-ray, sooner if having any problems. will make arrangements for HHPT at the time of discharge. At this point in time, has failed conservative measures and would like to proceed with surgical intervention. History of Present Illness Chief Complaint: Right knee pain Primary Care Provider: Valerie Isaacs DO Mr Lynch is a 64 year old male who is here for a follow up of Right knee pain, presents for pre-op evaluation prior to a Right total knee replacement at [facility]. He presents with pain and stiffness in his right knee. Currently the patient states that the symptoms are moderate-severe and is described as aching, sharp, shooting and throbbing. Patient ambulates daily with cane. He rates his current pain as 8/10. The symptoms are aggravated by ascending stairs, daily activities, descending stairs, first steps while awake, kneeling, movement, repetitive activities, sleeping in any position, squatting, standing, walking and weight bearing. He is also experiencing decreased mobility, difficulty going to sleep, instability, stiffness. Prior NSAIDs include Ibuprofen and Aleve. Prior pain medications include oxycodone. He has been treated with a corticosteroid injection as well Allergies Allergy/AdvReac Type Severity Reaction Status Date / Time tramadol Allergy Severe SOB Verified 05/24/20 11:59 ampicillin Allergy Mild pruritus, Verified 05/24/20 11:59 rash gabapentin AdvReac Intermediate hallucinati Verified 05/24/20 11:59 ons Home Medications Medication Instructions Recorded Confirmed Type B-complex with vitamin C [Super B 1 tab PO QAM 12/22/18 05/24/20 History Complex-Vitamin C] Eliquis 5 mg PO BID 12/22/18 05/24/20 History Multivitamin 50 Plus 1 tab PO QAM 12/22/18 05/24/20 History albuterol sulfate 2 puff INHALATION Q4H PRN 12/22/18 05/24/20 History amiodarone 100 mg PO QAM 12/22/18 05/24/20 History cetirizine 10 mg PO QAM 12/22/18 05/24/20 History cyclobenzaprine 10 mg PO TID PRN 12/22/18 05/24/20 History diltiazem HCl [Cartia XT] 180 mg PO QAM 12/22/18 05/24/20 History fluticasone propion-salmeterol 1 puff INHALATION BID 12/22/18 05/24/20 History hydrochlorothiazide 25 mg PO QAM 12/22/18 05/24/20 History lisinopril 40 mg PO HS 12/22/18 05/24/20 History montelukast 10 mg PO HS 12/22/18 05/24/20 History omeprazole 40 mg PO HS 12/22/18 05/24/20 History oxycodone 10 mg PO Q6H PRN 12/22/18 05/24/20 History cholecalciferol (vitamin D3) 25 mcg PO BID 12/24/19 05/24/20 History [Vitamin D3] coQ10 (ubiquinol) 200 mg PO QAM 12/24/19 05/24/20 History magnesium 250 mg PO QAM 12/24/19 05/24/20 History multivitamin with minerals 1 tab PO QAM 12/24/19 05/24/20 History [Hair,Skin and Nails] red yeast rice 600 mg PO BID 12/24/19 05/24/20 History aspirin [Aspir-81] 81 mg PO HS 05/24/20 05/24/20 History benralizumab [Fasenra] See Rx Instructions .ROUTE .COMPLEX 05/25/20 05/25/20 History Past Med/Surg History Medical History Acid reflux Afib paroxysmal Asthma stable CAD (coronary artery disease) Non-obstructive per 2018 cath-F/U DR DILSHAD BOLIVAR COPD (chronic obstructive pulmonary disease) Enlarged prostate Hiatal hernia History of hepatitis remote hx (does not remember what type), no treatment indicated per patient 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 MEDIAL vision deficit/"floaters" Hyperlipidemia Hypertension Morbid obesity Numbness and tingling chronic (LUE/hand, right fingertips) Sleep apnea CPAP Surgical History History of back surgery lumbar cyst removal History of cardiac cath 2018- no stents-[facility] History of colonoscopy History of elbow surgery LEFT History of esophagogastroduodenoscopy (EGD) History of eye surgery LASER RIGHT History of shoulder surgery LEFT History of tonsillectomy and adenoidectomy History of total knee replacement Left TKA: 01/27/19: SAB x1 attempt at L3/L4 + PNB at [facility] Hx of foot surgery RIGHT Family History Other Family history of breast cancer in mother Family history of cancer No family history of adverse response to anesthesia Social History Smoking Status: Former smoker Smoking End Date: QUIT 25-30 YRS AGO; Second Hand Exposure: Yes (FATHER/STEP MOTHER/SISTER SMOKE); Do You Dip or Chew Tobacco: Yes (VERY LITTLE-); Hx Alcohol Use: Yes Alcohol type: hard liquor Alcohol Intake Frequency Comment: 2-3 drinks hard liquor every 3-4 days Hx Substance Use: No Preferred Language: Namibian Communication Ability: Effective Die Designer Required: No Beliefs That Will Affect Care: None Current Living Situation: Alone Other Information That Helps Us Care for You: No Feels Safe at Home: Yes Safety Concerns: Feels Safe At This Time Assistive Devices: Brace/Splint/Immobilizer, Cane and Glasses Review of Systems Review of Systems: All systems reviewed & are unremarkable except as noted in HPI & below Constitutional: no fever, no chills and no sweats Respiratory: no cough and no dyspnea Cardiovascular: no chest pain, no dyspnea and no orthopnea Gastrointestinal: no abdominal pain, no nausea and no vomiting Musculoskeletal: as per Subjective / HPI Physical Exam Physical Exam: Ht: 5ft 9in Wt: 137.5kg Constitutional: WD/WN, vitals as above no acute distress Respiratory: normal respiratory effort, lungs clear to auscultation no respiratory distress, no labored breathing and does not use accessory muscles Cardiovascular: RRR, no murmur, no edema Gastrointestinal (Abdomen): normal bowel sounds, soft, nontender, no hepatosplenomegaly Musculoskeletal: Knee: + knee abnormal to inspection (Right Knee- ), + effusion (+1 effusion), + limited ROM of knee (ROM 0/3/110), + knee ROM with crepitation, + joint line tenderness (medial joint line) and + Lidia's sign positive; no deformity, no skin erythema, no ecchymosis, no valgus laxity, no varus laxity, anterior drawer test negative, Yanira's sign negative and pivot shift test negative Results & Data Results & Data ([facility]) Diagnostic Findings Right knee series showing advanced degenerative changes to the right knee, narrowing of the medial compartment and patello-femoral joint with patellar spurring noted, findings showing joint space narrowing of the medial compartment and patello-femoral joint, osteophyte formation and subchondral sclerosis noted. overall varus alignment. no acute bony pathology noted.
[~2020-06-14 08:50] MED LIST: ACETAMINOPHEN 500 MG TAB PO SCH; BUPIVACAINE 0.25% 30 ML VIAL ONE; BUPIVACAINE 0.5 % 5 MG/1 ML PF 10ML VIAL ONE; CeleBREX 200 MG CAP PO SCH; FAMOTIDINE 20 MG TAB PO SCH; LR 500ML BOLUS, THEN 15ML/HR IV SCH; METOCLOPRAMIDE HCL 10 MG TABLET PO SCH; ROPIVACAINE 0.5% HCL/PF 150 MG, BUPIVACAINE 0.75% MPF 20 ML, EPINEPHrine 30MG/30ML (OR ... INSTIL SCH; TRANEXAMIC ACID 1,000 MG **IV Intra-op IV SCH; TRANEXAMIC ACID 1,000 MG **IV Pre-op IV SCH; VANCOMYCIN HCL 2,000 MG in SODIUM CHLORIDE 0.9% 500 ML IV SCH; dexAMETHasone 4 MG TAB PO SCH
[2020-06-14] MEDS ORDERED: LIDOCAINE HCL 2% 2 ML VIAL/AMP(20MG/ML) INFIL ONE (08:59)
[2020-06-14] MEDS ORDERED: ePHEDrine sulfate 50 MG/ML SYR ONE (08:59)
[2020-06-14] MEDS ORDERED: MIDAZOLAM HCL 1 MG/ML 2ML VIAL ONE ×2 (08:59)
[2020-06-14] MEDS ORDERED: fentaNYL citrate 100 MCG/2 ML VIAL ONE (08:59)
[2020-06-14] MEDS ORDERED: PROPOFOL IV EMULSION 10 MG/ML 20 ML VIAL IV ONE (08:59)
--- NOTE | 2020-06-14 09:50 | History & Physical Bridge Note ---
Date of Service June 14, 2020 History & Physical Bridge Note I have examined the patient, reviewed the History & Physical and in the interval since the performance of the History & Physical I have noted the following changes of clinical significance: no changes noted
[2020-06-14] MEDS ORDERED: BACITRACIN INJ 50,000 UNIT VIAL ONE (10:22)
[2020-06-14] MEDS ORDERED: ORTHO JOINT ANESTHETIC ONE (10:22)
[2020-06-14] MEDS ORDERED: Nursing to Pharmacy Communication SCH (10:45)
[2020-06-14] MEDS ORDERED: ONDANSETRON INJ 2 MG/ML 2 ML VIAL IV PRN ×2 (11:00→14:00)
[2020-06-14] MEDS ORDERED: ATROPINE SULFATE 0.1 MG/ML 10ML SYR IV PRN (11:00)
[2020-06-14] MEDS ORDERED: ePHEDrine sulfate 50 MG/ML AMP IV PRN (11:00)
--- NOTE | 2020-06-14 12:10 | Operative Report ---
Post Operative Report Pre & Post Diagnosis Operation Date: 06/14/20 11:20 Pre-Op Diagnosis: Osteoarthritis Right Knee Post-Op Diagnosis: Osteoarthritis Right Knee I identified the patient and participated in the time-out.: Yes Procedure Operation Date: 06/14/20 11:20 Actual Procedures p Right Total Knee Arthroplasty(Right) utilizing [employer] [facility] 2 patient matched total knee arthroplasty size 7 femur 6 tibia 10 polyethylene 32 oval patella- Gigi Fuentes DO Surgeon Gigi Fuentes DO Family Services Assistant Blake BOLIVAR Estimated Blood Loss 5 Findings Consistent with Post-Op Diagnosis Patient presents with severe end-stage tricompartmental degenerative joint disease right knee is failed attempted conservative management is eburnated [id number] subchondral cystic changes marginal osteophytes sclerosis moderate to large effusion Specimens Bone and cartilage Drains Medium bore Hemovac Anesthesia Type MAC Spinal Regional Disposition Accompanied Patient To Recovery: No Disposition: Recovery Room Indications Patient presents with severe end-stage tricompartmental degenerative joint disease failed attempted conservative management clinic physical therapy anti- inflammatories relative rest activity modification corticosteroid injection viscosupplementation above intraoperative findings were noted. Description of Procedure After proper prepping and draping of the Right lower extremity anterior midline incision was made over the region of the extensor extensor mechanism after meticulous hemostasis was obtained and maintained in subcutaneous tissues a medial parapatellar incision was made The patella was subluxed lateralward the medial lateral gutter were cleaned from any hypertrophic synovitis and scar tissue of the distal femoral block was placed and the distal femoral osteotomy cut was made subsequently the chamfers anterior and posterior osteotomy cuts were made utilizing the 4-in-1 block the tibia was subsequently subluxed anteriorward medial and ateral meniscal remnants were excised in their entirety remnants of the anterior and posterior cruciate ligaments were excised in their entirety excellent exposure of the proximal tibia was obtained the tibial osteotomy guide was placed on the proximal tibial osteotomy cut was made once again the knee was irrigated with copious amounts of sterile saline solution the patella was subsequently everted lateralward thickened scar tissue around the patella was removed the patella was subsequently cut utilizing a freehand technique and was drilled prepared for final preparation and placement of patella socially flexion-extension gaps were checked and the equal and symmetric trials were placed to the appropriate femoral and tibial trials with poly-spacer being placed for equal flexion and extension gaps and full range of motion including extension to 0 and flexion to 140 the trial components after having been taken to recovery range of motion was subsequently removed meticulous hemostasis was obtained and maintained subsequently a knee block injection of joint cocktail including ropivacaine 0.5% 150 mg. Bupivacaine 0.5% epinephrine 1-200,030 mL's toradol 30 mg dexamethasone 4 mg ketamine 10 mg clonidine 100 micrograms normal saline solution 30 mg was infiltrated into the soft tissues of the posterior knee medial lateral gutters and periosteal synovium special attention was paid to protect neurovascular structures at all times subsequently trial components having been removed the knee was irrigated with sterile saline solution. debris was removed the proximal tibia was subsequently prepared and was made ready for the placement of the tibial component tibial component was also cemented and tamped into position the femoral component was subsequently placed and cemented in the position the patellar component was subsequently cemented in position because hemostasis once again obtained and maintained wound having been thoroughly irrigated with debridement and debridement lavage was performed as well as a medial parapatellar incision closed with #1 Vicryl in interrupted fashion subcutaneous was closed with #2 Vicryl skin was closed with skin clips. PA-C was necessary for prepping and drapping as well as wound closure of deep fascia Sub cutaneous tissue and skin and was necessary for the case. A sterile compressive dressing was placed patient was taken to recovery in stable condition of report dictated by Alfredo I attest to the content of the Intraoperative Record and any orders documented therein. Any exceptions are noted below. I attest to the content of the Intraoperative Record and any orders documented therein. Any exceptions are noted below.
--- NOTE | 2020-06-14 13:35 | XRay Report ---
XR knee RT 1 or 2V routine CLINICAL HISTORY: Surgical Post Op COMPARISON: None. DISCUSSION: There are postsurgical changes of a total right knee arthroplasty and patellar resurfacin g. The femoral and tibial components appear well seated. There is gas within the soft tissues consist ent with recent surgery. There are overlying skin rena and surgical drains. IMPRESSION: Postsurgical changes of a total right knee arthroplasty. ACT 112: Negative or not required by law. Electronically signed by: Morro Mancuso M.D. 06/14/2020 1:33 PM
[2020-06-14] MEDS ORDERED: bisacodyL 10 MG SUPP PR PRN (14:00)
[2020-06-14] MEDS ORDERED: HYDROmorphone INJ 0.5 MG/0.5 ML SYR IV PRN (14:00)
[2020-06-14] MEDS ORDERED: ALUMINUM/MAGNESIUM SUSP 30 ML UDC PO PRN (14:00)
[2020-06-14] MEDS ORDERED: ALBUTEROL HFA 8 GM INHALER INH PRN (14:00)
[2020-06-14] MEDS ORDERED: NALOXONE HCL 0.4 MG/1 ML VIAL/CARP IV PRN (14:00)
[2020-06-14] MEDS ORDERED: MAGNESIUM HYDROXIDE SUSP 30 ML UDC PO PRN (14:00)
[2020-06-14] MEDS ORDERED: VANCOMYCIN CONSULT ACTIVE PRN (14:00)
--- NOTE | 2020-06-14 14:32 | Anesthesiology Progress Note ---
Date of Service June 14, 2020 Anesthesia Post Procedure Vital Signs Vital Signs: Temp Pulse Pulse Resp BP BP Pulse Ox 06/14/20 14:26 65 18 135/64 93 06/14/20 13:45 36.5 C 65 18 128/76 93 06/14/20 13:20 36.4 C L 68 17 141/61 H 93 06/14/20 13:10 59 L 12 131/62 97 06/14/20 13:00 66 16 132/54 L 100 06/14/20 12:52 36.8 C 68 16 100/46 L 99 06/14/20 10:04 36.8 C 70 20 157/72 H 92 Pain Intensity Right Knee: Pain Intensity: 7 Transfer of Care Handoff Completed per policy Notes Mental Status: alert / awake / arousable and participated in evaluation Patient Amnestic to Procedure: Yes Nausea / Vomiting: adequately controlled Pain: adequately controlled Airway Patency, RR, SpO2: stable & adequate BP & HR: stable & adequate Hydration State: stable & adequate Neuraxial Anesthesia: was administered and sensory block is resolving Anesthetic Complications: no major complications apparent and Pt Satisfied with anesthetic care
[2020-06-14] MEDS ORDERED: CYCLOBENZAPRINE HCL 10 MG TAB PO PRN (15:09)
[2020-06-14] MEDS: ACETAMINOPHEN 500 MG TAB PO SCH ×2 (15:21→21:18)
[2020-06-14] MEDS: SODIUM CHLORIDE 0.9% 1000ML 1,000 ML IV SCH (15:22)
[2020-06-14] MEDS: FERROUS GLUCONATE 324 MG TAB PO SCH (17:48)
[2020-06-14] MEDS: oxyCODONE HCL IR 5 MG TAB (IMMEDIATE RELEASE) PO PRN ×2 (18:28→22:50)
[2020-06-14] MEDS: lisinopril 40 MG TAB PO SCH (21:16)
[2020-06-14] MEDS: DOCUSATE SODIUM 100 MG CAP PO SCH (21:16)
[2020-06-14] MEDS: SENNA 8.6 MG TAB PO SCH (21:17)
[2020-06-14] MEDS: ASPIRIN 81 MG ECTAB PO SCH (21:17)
[2020-06-14] MEDS: MONTELUKAST SODIUM 10 MG TABLET PO SCH (21:17)
[2020-06-14] MEDS: CHOLECALCIFEROL 1,000 UNITS 25 MCG TAB PO SCH (21:18)
[2020-06-14] MEDS ORDERED: VANCOMYCIN HCL 2,000 MG in SODIUM CHLORIDE 0.9% 500 ML IV SCH (22:00)
[2020-06-15] MEDS: SODIUM CHLORIDE 0.9% 1000ML 1,000 ML IV SCH (01:00)
[2020-06-15] MEDS: ACETAMINOPHEN 500 MG TAB PO SCH ×3 (05:41→22:03)
[2020-06-15] MEDS: oxyCODONE HCL IR 5 MG TAB (IMMEDIATE RELEASE) PO PRN ×4 (07:32→20:16)
[2020-06-15] MEDS ORDERED: NURSING DECISION MEDICATION ONE (07:43)
[2020-06-15] MEDS ORDERED: SODIUM CHLORIDE 0.65% NA SOLN 45 ML (OCEAN) PRN (07:51)
[2020-06-15 08:43] LABS: Hemoglobin 11.8 g/dL (14.0-18.0); Mean Corpuscular Hemoglobin 28.8 pg (25-34); Mean Corpuscular Hgb Conc 33.7 g/dL (32-36); Mean Corpuscular Volume 85.4 fL (80-100); Mean Platelet Volume 9.6 fL (7.4-10.4); Platelet Count 315 K/uL (130-400); RDW Coefficient of Variation 14.4 % (11.5-14.5); RDW Standard Deviation 45.1 fL (36.4-46.3); White Blood Count 16.59 K/uL (4.8-10.8)
[2020-06-15] MEDS ORDERED: NON-FORMULARY MEDICATION (Coq10 (Ubiquinol) 200 mg Capsule) PO SCH (09:00)
[2020-06-15] MEDS: APIXABAN 5 MG TABLET PO SCH ×2 (09:18→20:19)
[2020-06-15] MEDS: AMIODARONE 200 MG TAB PO SCH (09:18)
[2020-06-15 09:19] LABS: BUN Creatinine Ratio 16.9 (10-20); Calcium 8.8 mg/dl (8.5-10.1); Est GFR (African American) 67.2; Est GFR (Non-African American) 57.9; Potassium 4.1 mmol/L (3.5-5.1)
[2020-06-15] MEDS: CETIRIZINE HCL 10 MG TABLET PO SCH (09:19)
[2020-06-15] MEDS: MAGNESIUM OXIDE 400 MG TAB PO SCH (09:20)
[2020-06-15] MEDS: DOCUSATE SODIUM 100 MG CAP PO SCH ×2 (09:20→20:21)
[2020-06-15] MEDS: CHOLECALCIFEROL 1,000 UNITS 25 MCG TAB PO SCH ×2 (09:20→20:20)
[2020-06-15] MEDS: PANTOprazole 40 MG TAB PO SCH (09:21)
[2020-06-15] MEDS: MULTIVITAMIN TAB PO SCH (09:21)
[2020-06-15] MEDS: dilTIAZem HCL 180 MG CAPCR PO SCH (09:25)
[2020-06-15] MEDS: FLUTICASONE/VILANTEROL 100/25MCG 14 PUFFS/INHALER INH SCH (09:26)
[2020-06-15] MEDS: FERROUS GLUCONATE 324 MG TAB PO SCH ×2 (09:34→17:20)
--- NOTE | 2020-06-15 11:55 | Orthopedic Progress Note ---
Date of Service June 15, 2020 Assessment & Plan (1) Arthritis of right knee: Postop day 1 status post right total knee arthroplasty. PT/OT protocols. Weightbearing as tolerated. DVT prophylaxis-apixaban p.o. twice daily, SCDs, LEWIS parmar. Pain management as written. Leukocytosis-patient currently asymptomatic. Likely secondary to surgical stress and or preoperative steroids. DC planning-patient is planning for outpatient PT upon discharge. Admission and Anticipated Discharge Date Admission Date: June 14, 2020 Subjective Postop day 1 Patient sitting in the chair at the bedside. States he was having some pain this morning in the operative knee. Denies shortness of breath, chest pain, lightheadedness. Multiple questions about medications etc. no other complaints. We discussed that with his drainage level from his Hemovac that he would likely stay today. Physical Exam Physical Exam: Dressings are clean, dry, and intact. Calves are soft and nontender. Neurovascular intact. Toes are mobile. He has good dorsiflexion and plantarflexion of the foot. He states that he had somewhat of a foot drop last night but has improved quite a bit. Hemovac drainage was over 200 mL from the previous shift. Results & Data ([facility]) Vital Signs (Past 12 Hours) Vital Signs Temp Pulse Resp BP Pulse Ox 06/15/20 09:25 68 124/64 06/15/20 07:36 36.7 C 59 L 14 151/69 H 93 06/15/20 03:27 133/60 06/15/20 02:59 37.0 C 66 20 181/73 H 96 Laboratory Results Laboratory Results WBC 16.59 K/uL (4.8-10.8) H 06/15/20 07:52 RBC 4.10 M/uL (4.7-6.1) L 06/15/20 07:52 Hgb 11.8 g/dL (14.0-18.0) L 06/15/20 07:52 Hct 35.0 % (42-52) L 06/15/20 07:52 MCV 85.4 fL (80-100) 06/15/20 07:52 MCH 28.8 pg (25-34) 06/15/20 07:52 MCHC 33.7 g/dL (32-36) 06/15/20 07:52 RDW Std Deviation 45.1 fL (36.4-46.3) 06/15/20 07:52 RDW Coeff of Niya 14.4 % (11.5-14.5) 06/15/20 07:52 Plt Count 315 K/uL (130-400) 06/15/20 07:52 MPV 9.6 fL (7.4-10.4) 06/15/20 07:52 Sodium 139 mmol/L (136-145) 06/15/20 07:52 Potassium 4.1 mmol/L (3.5-5.1) 06/15/20 07:52 Chloride 107 mmol/L (98-107) 06/15/20 07:52 Carbon Dioxide 26 mmol/L (21-32) 06/15/20 07:52 Anion Gap 6.0 (3-11) 06/15/20 07:52 BUN 22 mg/dl (7-18) H 06/15/20 07:52 Creatinine 1.31 mg/dl (0.6-1.4) 06/15/20 07:52 Est Cr Clr Drug Dosing 83.0 ml/min 06/15/20 07:52 Est GFR ( Amer) 67.2 06/15/20 07:52 Est GFR (Non-Af Amer) 57.9 06/15/20 07:52 BUN/Creatinine Ratio 16.9 (10-20) 06/15/20 07:52 Glucose 161 mg/dl (70-99) H 06/15/20 07:52 Calcium 8.8 mg/dl (8.5-10.1) 06/15/20 07:52 COVID-19 Eval Order Covid19 IDNow [facility] 06/14/20 Unknown SARS-CoV-2, RNA, NAAT NEGATIVE (NEGATIVE) 06/14/20 Unknown Blood Type O Positive 06/14/20 09:24 Antibody Screen NEGATIVE 06/14/20 09:24 Impressions Knee X-Ray 06/14/20 13:05 XR knee RT 1 or 2V routine CLINICAL HISTORY: Surgical Post Op COMPARISON: None. DISCUSSION: There are postsurgical changes of a total right knee arthroplasty and patellar resurfacing. The femoral and tibial components appear well seated. There is gas within the soft tissues consistent with recent surgery. There are overlying skin rena and surgical drains. IMPRESSION: Postsurgical changes of a total right knee arthroplasty. ACT 112: Negative or not required by law. Electronically signed by: Morro Mancuso M.D. 06/14/2020 1:33 PM
[2020-06-15] MEDS: ASPIRIN 81 MG ECTAB PO SCH (20:19)
[2020-06-15] MEDS: MONTELUKAST SODIUM 10 MG TABLET PO SCH (20:20)
[2020-06-15] MEDS: lisinopril 40 MG TAB PO SCH (20:20)
[2020-06-15] MEDS: SENNA 8.6 MG TAB PO SCH (20:20)
[2020-06-16] MEDS: oxyCODONE HCL IR 5 MG TAB (IMMEDIATE RELEASE) PO PRN ×2 (04:05→14:29)
[2020-06-16] MEDS: ACETAMINOPHEN 500 MG TAB PO SCH (05:49)
[2020-06-16] MEDS: FLUTICASONE/VILANTEROL 100/25MCG 14 PUFFS/INHALER INH SCH (07:31)
[2020-06-16] MEDS: FERROUS GLUCONATE 324 MG TAB PO SCH (07:31)
[2020-06-16] MEDS: DOCUSATE SODIUM 100 MG CAP PO SCH (07:31)
[2020-06-16] MEDS: dilTIAZem HCL 180 MG CAPCR PO SCH (07:33)
[2020-06-16] MEDS: CETIRIZINE HCL 10 MG TABLET PO SCH (07:34)
[2020-06-16] MEDS: MAGNESIUM OXIDE 400 MG TAB PO SCH (07:34)
[2020-06-16] MEDS: APIXABAN 5 MG TABLET PO SCH (07:34)
[2020-06-16] MEDS: AMIODARONE 200 MG TAB PO SCH (07:34)
[2020-06-16] MEDS: MULTIVITAMIN TAB PO SCH (07:34)
[2020-06-16] MEDS: PANTOprazole 40 MG TAB PO SCH (07:34)
[2020-06-16] MEDS: CHOLECALCIFEROL 1,000 UNITS 25 MCG TAB PO SCH (07:35)
--- NOTE | 2020-06-16 08:40 | Orthopedic Progress Note ---
Date of Service June 16, 2020 Assessment & Plan (1) Arthritis of right knee: Postop day 2 status post right total knee arthroplasty. PT/OT protocols. Weightbearing as tolerated. DVT prophylaxis-apixaban p.o. twice daily, SCDs, LEWIS parmar. Pain management as written. Leukocytosis-patient currently asymptomatic. Likely secondary to surgical stress and or preoperative steroids. Labs pending. Patient progressing well with physical therapy. Plan for discharge today. DC planning-patient is planning for outpatient PT upon discharge. Admission and Anticipated Discharge Date Admission Date: June 14, 2020 Subjective Postop day 2 Patient sitting up in bed watching TV. No complaints this morning. States that his knee is feeling much better this morning. He has good pain control currently. He is hoping to go home today. Physical Exam Physical Exam: Lisette dressing is clean, dry, and intact. Calves are soft nontender. Neurovascular is intact. Toes are mobile. Results & Data ([facility]) Vital Signs (Past 12 Hours) Vital Signs Temp Pulse Resp BP Pulse Ox 06/16/20 05:46 36.9 C 58 L 18 155/69 H 93 06/15/20 22:46 37.1 C 61 18 120/48 L 94
[2020-06-16 08:55] LABS: Hematocrit (blood only) 33.8 % (42-52); Hemoglobin 11.3 g/dL (14.0-18.0); Mean Corpuscular Hemoglobin 28.7 pg (25-34); Mean Corpuscular Hgb Conc 33.4 g/dL (32-36); Mean Corpuscular Volume 85.8 fL (80-100); Mean Platelet Volume 9.7 fL (7.4-10.4); Platelet Count 320 K/uL (130-400); RDW Coefficient of Variation 14.7 % (11.5-14.5); RDW Standard Deviation 46.4 fL (36.4-46.3); Red Blood Count 3.94 M/uL (4.7-6.1); White Blood Count 13.22 K/uL (4.8-10.8)
[2020-06-16 09:21] LABS: BUN Creatinine Ratio 17.1 (10-20); Calcium 8.7 mg/dl (8.5-10.1); Creatinine Clr Calc Pharmacy 76.1 ml/min; Est GFR (African American) 60.4; Est GFR (Non-African American) 52.1; Potassium 4.1 mmol/L (3.5-5.1)
== END 2020-06-16 14:59 | disposition home or self-care (01) | DRG 470 ==
LOC: ASU 08:50 → 3E 08:50 → OBSVTOIN 13:05